=== PATIENT | male | born 1955 | race Two or more races ===

== ENCOUNTER 2016-12-30 17:07 | Emergency (ER) | payer OTHER ==
[~2016-12-30] VITALS: Ht 172.7 cm; Wt 96.2 kg
--- NOTE | 2016-12-30 17:49 | PHYS DOC ---
Past Medical History Past Medical History: Asthma, Diabetes-Type II, Hypertension Past Surgical History: Appendectomy, Colectomy, Hip Replacement, Knee Replacement Additional Past Surgical Histo: colostomy with takedown Alcohol Use: Occasionally Drug Use: None Adult General Chief Complaint Chief Complaint: SHORTNESS OF BREATH HPI HPI Patient is a 61 year old male who presents with cough and dyspnea for the past 2 months. He is also felt a little bit wheezy during this time (h/o asthma). He denies any chest discomfort. Patient has seen his PCP for this and actually went to see if the neurologist today. A chest x-ray was performed, and patient was told he needed to come to the Emergency Department for evaluation. Unclear what the concern was. Patient has been using his albuterol inhaler has been started on prednisone for asthma; took a 60 mg dose today. No other acute complaints. Review of Systems Review of Systems Constitutional: Denies fever or chills Eyes: Denies change in visual acuity or eye pain HENT: Denies nasal congestion or sore throat Respiratory: Cough, dyspnea x2 months Cardiovascular: Denies chest pain GI: Denies abdominal pain, nausea, vomiting, bloody stools or diarrhea : Denies dysuria or hematuria Musculoskeletal: Denies back pain or joint pain Integument: Denies rash or skin lesions Neurologic: Denies headache, focal weakness or sensory changes Current Medications Current Medications Current Medications Medications (Trade) Dose Ordered Sig/[place]arson Start Time Stop Time Status Last Admin Dose Admin Sodium Chloride (Iv Sodium Chloride 0.9% 1000ml Bag) 1,000 ml @ 1,000 mls/hr 1X ONCE 12/30/16 19:00 12/30/16 19:59 DC 12/30/16 19:00 1,000 MLS/HR Allergies Allergies Allergies Coded Allergies Type Severity Reaction Last Updated Verified Penicillins Allergy Intermediate 12/30/16 Yes Physical Exam Physical Exam Constitutional: Well developed, well nourished, no acute distress, non-toxic appearance HENT: Normocephalic, atraumatic, bilateral external ears normal Eyes: EOMI, conjunctiva normal, no discharge Neck: Normal range of motion, no stridor Cardiovascular: Heart rate normal, regular rhythm, no murmur Lungs & Thorax: Bilateral breath sounds clear to auscultation except for intermittent trace end expiratory wheezing in bases Abdomen: Bowel sounds normal, soft, non-distended, no TTP Skin: Warm, dry, no erythema, no rash Extremities: No obvious deformity, no edema Neurologic: Alert and oriented X 3, no gross deficits noted Current Patient Data Vital Signs Vital Signs Date Time Temp Pulse Resp B/P Pulse Ox O2 Delivery O2 Flow Rate FiO2 12/30/16 19:50 104 18 160/80 100 Room Air 12/30/16 17:10 97.5 97.5 Lab Values Laboratory Tests Test 12/30/16 17:42 White Blood Count 8.3x10^3/uL (4.0-11.0) Red Blood Count 4.94x10^6/uL (4.30-5.70) Hemoglobin 13.8g/dL (13.0-17.5) Hematocrit 42.1% (39.0-53.0) Mean Corpuscular Volume 85fL (79-100) Mean Corpuscular Hemoglobin 28pg (25-35) Mean Corpuscular Hemoglobin Concent 33g/dL (31-37) Red Cell Distribution Width 14.7% (11.5-14.5) H Platelet Count 173x10^3/uL (140-400) Neutrophils (%) (Auto) 90% (31-73) H Lymphocytes (%) (Auto) 6% (24-48) L Monocytes (%) (Auto) 5% (0-9) Eosinophils (%) (Auto) 0% (0-3) Basophils (%) (Auto) 0% (0-3) Neutrophils # (Auto) 7.5x10^3uL (1.8-7.7) Lymphocytes # (Auto) 0.5x10^3/uL (1.0-4.8) L Monocytes # (Auto) 0.4x10^3/uL (0.0-1.1) Eosinophils # (Auto) 0.0x10^3/uL (0.0-0.7) Basophils # (Auto) 0.0x10^3/uL (0.0-0.2) Segmented Neutrophils % 88% (35-66) H Band Neutrophils % 5% (0-9) Lymphocytes % 3% (24-48) L Monocytes % 3% (0-10) Metamyelocytes % 1% (0-0) H Platelet Estimate Adequate (ADEQUATE) Sodium Level 135mmol/L (136-145) L Potassium Level 4.6mmol/L (3.5-5.1) Chloride Level 98mmol/L (98-107) Carbon Dioxide Level 26mmol/L (21-32) Anion Gap 11 (6-14) Blood Urea Nitrogen 28mg/dL (8-26) H Creatinine 1.4mg/dL (0.7-1.3) H Estimated GFR (Cockcroft-Gault) 51.5 Glucose Level 434mg/dL (70-99) H Calcium Level 8.7mg/dL (8.5-10.1) Troponin I Quantitative < 0.017ng/mL (0.000-0.055) NL-Lim-O-Type Natriuretic Peptide 118pg/mL (0-124) Laboratory Tests 12/30/16 17:42 Laboratory Tests 12/30/16 17:42 EKG EKG EKG (my read): sinus rhythm, rate 95, LAD, intervals wnl, no acute ischemic changes Radiology/Procedures Radiology/Procedures CXR (my read): Hazy opacity R upper lung field CT chest: IMPRESSION No acute findings. Course & Med Decision Making Course & Med Decision Making Pertinent Labs and Imaging studies reviewed. (See chart for details) Patient is 61-year-old male who presents with cough and dyspnea for the past 2 months. I was unable to get in contact with the director export who had seen patient today; patient believes they were concerned about the possibility that his symptoms are related to his heart. Low suspicion for ACS given HPI and duration of symptoms. Will check EKG, chest x-ray, labs to evaluate. CT chest also ordered after hazy opacity noted in right lung. EKG okay per my read. Blood work notable for hyperglycemia (presumably due to steroids), otherwise unremarkable. Troponin and BNP within normal limits. CT results as above. Discussed results with patient. Will plan discharge home with prescription for naproxen (per patient request), instructions for follow-up, strict return precautions. Dragon Disclaimer Dragon Disclaimer This electronic medical record was generated, in whole or in part, using a voice recognition dictation system. Departure Departure Impression: Primary Impression: Dyspnea Disposition: 01 HOME, SELF-CARE Condition: STABLE Referrals: BRANT INGRAM MD Patient Instructions: Shortness of Breath Additional Instructions: Thank you for allowing us to provide care today in the Emergency Department. Schedule a follow up appointment with your primary care doctor and with Dr. Ingram. Return promptly to the Emergency Department if you develop any new or concerning symptoms. Scripts Naproxen Sodium 220 Mg [id number] Mg PO BID PRN PAIN #20 Prov:ANITA SHULTZ MD 12/30/16 ANITA SHULTZ MD Dec 30, 2016 17:49
--- NOTE | 2016-12-30 18:06 | EKG ---
[facility] [address] [place] [address] Test Date: 2016-12-30 Test Time: 17:38:14 Pat Name: CHRISTIANNE VELAZQUEZ Department: Room: Gender: M Reading Specialist: : [id number] Requested By: ANITA SHULTZ Order Number: [id number] Reading MD: Measurements Intervals [place] Rate: 95 P: 0 WV: 160 QRS: -6 QRSD: 78 T: 18 QT: 330 QTc: 418 Interpretive Statements SINUS RHYTHM LEFTWARD AXIS QRS(T) CONTOUR ABNORMALITY CONSIDER ANTEROLATERAL MYOCARDIAL DAMAGE POSSIBLY ABNORMAL ECG RI6.01 No previous ECG available for comparison
[2016-12-30 18:09] LABS: BASO % 0 % (0-3); EOS % 0 % (0-3); HEMATOCRIT 42.1 % (39.0-53.0); HEMOGLOBIN 13.8 g/dL (13.0-17.5); LYMPH # 0.5 x10^3/uL (1.0-4.8); LYMPH % 6 % (24-48); MEAN CORPUSCULAR HEMOGLOBIN 28 pg (25-35); MEAN CORPUSCULAR HGB CONC 33 g/dL (31-37); MEAN CORPUSCULAR VOLUME 85 fL (79-100); MONO % 5 % (0-9); NEUT % 90 % (31-73); PLATELET COUNT 173 x10^3/uL (140-400); RED BLOOD COUNT 4.94 x10^6/uL (4.30-5.70); RED CELL DISTRIBUTION WIDTH 14.7 % (11.5-14.5); WHITE BLOOD COUNT 8.3 x10^3/uL (4.0-11.0)
[2016-12-30 18:12] LABS: CALCIUM 8.7 mg/dL (8.5-10.1); CREATININE 1.4 mg/dL (0.7-1.3); GFR 51.5; POTASSIUM 4.6 mmol/L (3.5-5.1)
[2016-12-30] MEDS ORDERED: IV NORMAL SALINE 1000ML BAG 1,000 ML IV ONE (19:00)
--- NOTE | 2016-12-30 19:37 | RAD ---
PROCEDURE CT chest without contrast HISTORY Dyspnea and asthma and abnormal chest x-ray TECHNIQUE Axial helical images the chest obtained without contrast and axial coronal sagittal reconstruction was performed. FINDINGS There are calcified granuloma in the mediastinum and a calcified granuloma in the right middle lobe. The remaining lungs and pleural margins are clear. There is no lymphadenopathy. IMPRESSION No acute findings. Electronically signed by: Elan Perdomo MD (Dec 30, 2016 19:36:56)
[2016-12-30 19:43] LABS: PLT ESTIMATE ADEQUATE (ADEQUATE)
[2016-12-30 19:50] VITALS: BP 160/80
[2016-12-30] MEDS ORDERED: NAPR220T25 PO (20:12)
--- NOTE | 2016-12-31 08:35 | RAD ---
Chest, 2 views, 12/30/2016: History: Shortness of breath, lightheadedness, cough Comparison is made to a study from 04/29/2007. The heart size and pulmonary vascularity are normal. The ascending aorta is prominent. Correlation with the recent CT study shows that the ascending aorta is dilated measuring 4.4 cm in width. No pulmonary infiltrates are seen. There is no evidence of pleural fluid. Minimal spurring is present in the spine. IMPRESSION: 1. Mild dilatation of the ascending aorta. 2. No acute cardiopulmonary abnormality is detected.
== END 2016-12-30 20:45 | disposition home or self-care (01) ==
LOC: ER 17:07
DX: R06.00 Dyspnea, unspecified (principal); J45.909 Unspecified asthma, uncomplicated; I10 Essential (primary) hypertension; E11.9 Type 2 diabetes mellitus without complications; Z88.0 Allergy status to penicillin
CPT/HCPCS: 36415; 71020; 71250; 80048; 83880; 84484; 85007; 85027; 93005; 96360; 96361; 99285; J7030